=== PATIENT | female | born 1990 | race African-American/Black ===

== ENCOUNTER → 2017-03-24 | Day surgery (SDC) | payer BC, OTHER ==
[2017-03-14 09:31] VITALS: BMI 41.0
--- NOTE | 2017-03-14 10:05 | PAT Medication Instructions ---
Service Date Mar 14, 2017. Current Home Medication List Turmeric (Curcuma Longa) (Turmeric), 1 TAB PO QAM Medication Instructions For Your Scheduled Surgery - Hold the following medications starting 03/15/17: Turmeric (Curcuma Longa) (Turmeric), 1 TAB PO QAM If you have any questions please call us at [phone] or [phone] or [phone]
[2017-03-14 10:59] LABS: BASO % 0.6 %; BASO ABS # 0.04 K/uL (0-0.2); COMPLETE YES; EOS % 1.6 %; HEMATOCRIT 38.8 % (37-47); IG% 0.2 %; LYMPH % 36.3 %; LYMPH ABS # 2.29 K/uL (1.2-3.4); MEAN CELL VOLUME 88.4 fL (80-100); MEAN CORPUSCULAR HEMOGLOBIN 28.7 pg (25-34); MEAN CORPUSCULAR HGB CONC 32.5 g/dl (32-36); MONO % 4.8 %; NEUT % 56.5 %; PLATELET COUNT 366 K/uL (130-400); RED BLOOD COUNT 4.39 M/uL (4.2-5.4)
[2017-03-14 12:11] LABS: CALCIUM 8.9 mg/dl (8.5-10.1); CREATININE 0.72 mg/dl (0.60-1.20); POTASSIUM 3.8 mmol/L (3.5-5.1)
[~2017-03-24] VITALS: Ht 177.8 cm; Wt 131.0 kg
[~2017-03-24] MED LIST: ATROPINE SULFATE 0.1 MG/ML 5ML SYR IV PRN; BUPIVACAINE 0.5 % 5 MG/1 ML MPF 30ML VIAL ONE; CHECK SCOPOLAMINE PATCH PLACEMENT SCH; DEXAMETHASONE SOD INJ 4 MG/ML VIAL ONE; ESMOLOL HCL 10 MG/ML 10 ML VIAL ONE; EpHEDrine SULFATE INJ 50 MG/ML AMP IV PRN; FENTANYL CITRATE INJ 50 MCG/1 ML 2 ML VIAL ONE; GLYCOPYRROLATE INJ 0.2 MG/ML VIAL ONE; LACTATED RINGER'S 500 ML IV SCH; LIDOCAINE HCL 2% 2 ML VIAL (20MG/ML) ONE; MIDAZOLAM HCL 1 MG/ML 2ML VIAL ONE; MoRPHine SULFATE 2 MG/ML CARP IV PRN; MoRPHine SULFATE 4 MG/ML 1 ML CARP\\VIAL IV PRN; NEOSTIGMINE METHYLSULFATE 5 MG/5 ML SYR ONE; ONDANSETRON INJ 2 MG/ML 2 ML VIAL IV PRN; ONDANSETRON INJ 2 MG/ML 2 ML VIAL ONE; OXYC-57 PO; OXYCODONE/ACETAMINOPHEN 5-325 TAB PO PRN; PROPOFOL IV EMULSION 10 MG/ML 20 ML VIAL IV ONE; ROCURONIUM BROMIDE 10 MG/ML 5 ML VIAL IV ONE; SCOPOLAMINE 1.5 MG TDSY TD SCH; TURM500T PO
[2017-03-24 09:28] VITALS: BP 135/81; PULSE 82; TEMP 36.8; O2SAT 99; Ht 177.8 cm; Wt 131.0 kg
--- NOTE | 2017-03-24 11:11 | History & Physical Bridge Note ---
H&P Re-Evaluation Bridge Note: I have examined the patient, reviewed the History & Physical and in the interval since the performance of the History & Physical I have noted the following changes of clinical significance: No changes noted
--- NOTE | 2017-03-24 12:43 | Discharge Instructions ---
Discharge Instructions Date of Service Mar 24, 2017. Admission Reason for Admission: Endometrioma, Abdominal Wall Mass Discharge Discharge Diagnosis / Problem: same Discharge Goals Goal(s): Decrease discomfort, Improve function Activity Recommendations Activity Limitations: as noted below No heavy lifting over 10 pounds for 4-6 weeks No strenuous activity until cleared by surgeon Walking and light activity is encouraged No submerging incision underwater for 2 weeks (No bathing, swimming, or hot tubs ) No driving while you are taking narcotic pain medication or until you are pain free . Instructions / Follow-Up Instructions / Follow-Up You may shower in 24 hours. Remove outer dressing however keep steri strips on incision for 7 days. If they fall off before that is okay. The incision may have some drainage for the first couple of days so you want to keep it covered with gauze and tape. Follow-up with Dr. Boggs in 2 weeks or as already scheduled. If you do not have an appointment please call office at [phone] to make an appointment. Current Hospital Diet Patient's current hospital diet: Discharge Diet Recommended Diet: Regular Diet Procedures Procedures Performed: Removal of Abdominal Wall Endometrioma Pending Studies Studies pending at discharge: yes List of pending studies: Surgical excision specimen pathology- will be reviewed at follow-up visit Medical Emergencies . Who to Call and When: Medical Emergencies: If at any time you feel your situation is an emergency, please call 911 immediately. . Non-Emergent Contact Non-Emergency issues call your: Primary Care Provider, Surgeon Call Non-Emergent contact if: you have a fever, temperature is above 101.5, your pain is not controlled, your pain is worsening, wound has increased drainage, wound has increased redness, wound has increased pain . "Provider Documentation" section prepared by Adele Velazquez. . VTE Core Measure Inpt VTE Proph given/why not?: SCD's [place] Drug Monitoring Program Search Results: patient reviewed within database, no issues identified
[2017-03-24] MEDS: FENTANYL CITRATE INJ 50 MCG/1 ML 2 ML VIAL IV PRN ×3 (13:03→13:19)
[2017-03-24 13:44] VITALS: BP 128/74; PULSE 69; TEMP 36.3; O2SAT 99
[2017-03-24 14:16] VITALS: BP 145/82; PULSE 77; O2SAT 99
[2017-03-24 14:45] VITALS: BP 150/87; PULSE 76; TEMP 36.6; O2SAT 99
--- NOTE | 2017-03-24 14:50 | Anesthesiology Progress Note ---
Anesthesia Post Op Note Date & Time Mar 24, 2017 at 14:50 Vital Signs Pain Intensity: 5.0 Vital Signs Past 12 Hours Date Time Temp Pulse Resp B/P (MAP) Pulse Ox O2 Delivery O2 Flow Rate FiO2 03/24/17 14:16 77 18 145/82 99 Room Air 03/24/17 13:44 36.3 69 16 128/74 99 Room Air 03/24/17 13:36 152/78 03/24/17 13:33 36.9 03/24/17 13:32 74 13 98 03/24/17 13:32 74 13 03/24/17 13:31 166/78 03/24/17 13:27 76 16 98 03/24/17 13:27 76 16 03/24/17 13:26 151/82 03/24/17 13:22 75 16 03/24/17 13:22 75 16 96 03/24/17 13:21 152/80 03/24/17 13:19 78 16 99 03/24/17 13:19 78 16 03/24/17 13:16 151/86 03/24/17 13:14 74 16 95 03/24/17 13:14 74 16 03/24/17 13:11 156/78 03/24/17 13:09 74 15 03/24/17 13:09 71 15 96 03/24/17 13:08 74 16 03/24/17 13:08 74 16 95 03/24/17 13:06 157/91 03/24/17 13:03 74 15 99 03/24/17 13:03 71 15 03/24/17 13:01 162/91 03/24/17 12:58 72 16 100 03/24/17 12:58 73 16 03/24/17 12:56 161/90 03/24/17 12:53 73 17 03/24/17 12:53 73 17 100 03/24/17 12:51 161/91 03/24/17 12:48 71 19 03/24/17 12:48 71 19 100 03/24/17 12:46 159/91 03/24/17 12:43 74 20 100 03/24/17 12:43 73 20 03/24/17 12:41 154/86 03/24/17 12:39 150/82 03/24/17 12:38 76 16 100 03/24/17 12:38 73 16 03/24/17 12:38 36.3 81 18 150/82 100 Mask 10 03/24/17 09:28 36.8 82 18 135/81 (99) 99 Room Air Notes Mental Status: alert / awake / arousable, participated in evaluation Pt Amnestic to Procedure: Yes Nausea / Vomiting: adequately controlled Pain: adequately controlled Airway Patency, RR, SpO2: stable & adequate BP & HR: stable & adequate Hydration State: stable & adequate Anesthetic Complications: no major complications apparent
--- NOTE | 2017-03-25 09:04 | OPERATIVE REPORT ---
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 POSTOPERATIVE DIAGNOSIS: Same. PROCEDURE: Removal of endometrioma, low right abdominal wall. SURGEON: Dr. Boggs. FINDINGS: The patient had a 7 x 7 cm area of the subcutaneous tissue that was hard and extended down to the fascia, was attached to the fascia. It was removed with a rim of normal tissue around it including some of the fascia. The entire palpable hard area was removed. There were no other lesions noted. TECHNIQUE: The area was marked in the preop surgical area. She was taken to the operating room, given a general anesthetic and the area was prepped and draped in the usual sterile fashion. The elliptical incision of skin was taken around the ____ the lateral aspect of the transverse Pfannenstiel incision. This was carried down through the skin and then skin flaps were created superiorly and inferiorly. Beginning then to work superiorly, though I was at the top of the lesion and then working posteriorly and then working medially in a similar plane, taking some normal tissue until it was circumscribed completely. I then performed the deep dissection, requiring removal of part of the fascia in order to remove the entire lesion with the rim of normal tissue. The area was inspected for bleeding, none was seen. The fascia was closed with a running #1 PDS. The deep fatty tissues were approximated with interrupted 2-0 Vicryl. The more superficial subcutaneous tissue was closed with running 3-0 Vicryl and skin was closed with 4-0 Monocryl in a running subcuticular fashion. The skin was cleansed, dried, benzoin placed, Steri-Strips applied after being anesthetized with 0.5% Marcaine. The estimated blood loss was 5 mL. Sponge, needle and instrument counts were correct prior to closure. The patient tolerated the surgical procedure without complication and was transferred to recovery. I attest to the content of the Intraoperative Record and any orders documented therein. Any exception s are noted below.
== END | disposition home or self-care (01) ==
LOC: C.ACU 08:58
PROVIDERS: ATTEND Surgery
DX: N80.8 Other endometriosis (principal); F17.200 Nicotine dependence, unspecified, uncomplicated

== ENCOUNTER 2018-03-23 21:21 | Emergency (ER) | payer OTHER ==
[~2018-03-23] VITALS: Ht 180.3 cm; Wt 137.0 kg
[~2018-03-23 21:21] MED LIST changes: -ATROPINE SULFATE 0.1 MG/ML 5ML SYR IV PRN; -BUPIVACAINE 0.5 % 5 MG/1 ML MPF 30ML VIAL ONE; -CHECK SCOPOLAMINE PATCH PLACEMENT SCH; -DEXAMETHASONE SOD INJ 4 MG/ML VIAL ONE; -ESMOLOL HCL 10 MG/ML 10 ML VIAL ONE; -EpHEDrine SULFATE INJ 50 MG/ML AMP IV PRN; -FENTANYL CITRATE INJ 50 MCG/1 ML 2 ML VIAL ONE; -GLYCOPYRROLATE INJ 0.2 MG/ML VIAL ONE; -LACTATED RINGER'S 500 ML IV SCH; -LIDOCAINE HCL 2% 2 ML VIAL (20MG/ML) ONE; -MIDAZOLAM HCL 1 MG/ML 2ML VIAL ONE; -MoRPHine SULFATE 2 MG/ML CARP IV PRN; -MoRPHine SULFATE 4 MG/ML 1 ML CARP\\VIAL IV PRN; -NEOSTIGMINE METHYLSULFATE 5 MG/5 ML SYR ONE; -ONDANSETRON INJ 2 MG/ML 2 ML VIAL IV PRN; -ONDANSETRON INJ 2 MG/ML 2 ML VIAL ONE; -OXYC-57 PO; -OXYCODONE/ACETAMINOPHEN 5-325 TAB PO PRN; -PROPOFOL IV EMULSION 10 MG/ML 20 ML VIAL IV ONE; -ROCURONIUM BROMIDE 10 MG/ML 5 ML VIAL IV ONE; -SCOPOLAMINE 1.5 MG TDSY TD SCH
[2018-03-23 21:38] VITALS: TEMP 37; Ht 180.3 cm; Wt 137.0 kg
[2018-03-23] MEDS ORDERED: CEPHALEXIN 500MG HOME PACK 1 EA BTL PO STA (23:50)
[2018-03-23] MEDS ORDERED: CEPH500C2 PO (23:51)
--- NOTE | 2018-03-23 23:52 | EMERGENCY ROOM VISIT NOTE ---
History First contact with patient: 21:52 Chief Complaint: SWELLING TO EXTREMITY Stated Complaint: LUMP ON LOWER LEFT LEG, HOT TO TOUCH History of Present Illness The patient is a 28 year old female who presents to the Emergency Room via private vehicle with complaints of "lump on lower left leg, hot to touch". The patient states that about 3 weeks ago she fell while descending a hiking trail. She notes that she injured multiple regions of which the pain has now resolved. She notes now she is concerned about a warm and hardened area on the left lateral calf. She rates her overall discomfort as a 0. No fevers or chills. No history of DVT. Review of Systems A complete 6-point Review of Systems was discussed with the patient, with pertinent positives and negatives listed in the History of Present Illness. All remaining Review of Systems questions can be considered negative unless otherwise specified. Past Medical/Surgical History Medical Problems: (1) Benign hypertension (2) section Social History Smoking Status: Never Smoker Alcohol Use: occasionally Marital Status: single Housing Status: lives with family Occupation Status: employed Current/Historical Medications Scheduled Cephalexin Monohydrate (Keflex), 500 MG PO QID Physical Exam Vital Signs Date Time Temp Pulse Resp B/P (MAP) Pulse Ox O2 Delivery O2 Flow Rate FiO2 03/23/18 23:57 74 18 126/74 98 03/23/18 21:38 37.0 99 18 149/95 95 Room Air Physical Exam VITAL SIGNS - Vital signs and nursing notes were reviewed. Stable. Afebrile. GENERAL -28-year-old female appearing her stated age who is in no acute distress. Communicates well with provider and answers questions appropriately. SKIN -overlying the patient's left lateral calf there is a slightly indurated/ firm area that measures approximately 4 cm x 10 cm. No fluctuance. Minimal erythema that measures about 3 cm x 3 cm overlying this region. Skin is intact. HEAD - NC/AT. EXTREMITIES - No clubbing or peripheral cyanosis. No pretibial edema present. No bony tenderness of the patient's left lower extremity. Excellent mobility about the knee and ankle region. Minimal edema noted in the ankle. Minimal lateral calf tenderness. No bony tenderness. +5/5 strength noted in UE/LE bilaterally. NEUROLOGIC - Cranial nerves II through XII grossly intact. PSYCH - A&O, and cooperates fully with examiner. Pt is very pleasant and interacts well with examiner. Medical Decision & Procedures ER Provider Diagnostic Interpretation: Ultrasound extremity: No DVT, radiologist Helder Sky MD. Ultrasound venous left lower extremity: No evidence of deep venous thrombosis. Radiologist: Helder Sky MD. LEFT LOWER EXTREMITY ULTRASOUND CLINICAL HISTORY: L leg pain s/p trauma 3 weeks ago- Lateral calf COMPARISON STUDY: None. FINDINGS: Real-time sonographic imaging of the left calf was performed with cash application representative images mid up. Increased echogenicity within the subcutaneous fat suggestive of a contusion. No fluid collections to suggest a hematoma. IMPRESSION: Subcutaneous contusion within the left calf. No fluid collections to suggest a hematoma. Electronically signed by: Pola Kaur M.D. 03/24/2018 7:07 AM Dictated Date/Time: 03/24/2018 7:06 AM LEFT LOWER EXTREMITY VENOUS DOPPLER HISTORY: L leg pain s/p trauma 3 weeks ago COMPARISON STUDY: None. FINDINGS: There is normal compressibility, flow, and augmentation within the left lower extremity deep venous system. IMPRESSION: No DVT within the left lower extremity. Electronically signed by: Pola Kaur M.D. 03/24/2018 7:06 AM Dictated Date/Time: 03/24/2018 7:06 AM Medications Administered Medications (Trade) Dose Ordered Sig/Kasandra Route Start Time Stop Time Status Last Admin Dose Admin Cephalexin Monohydrate (Keflex 500MG Home Pack) 1 homepack NOW STAT PO 03/23/18 23:50 03/23/18 23:51 DC 03/23/18 23:50 1 HOMEPACK Medical Decision Patient was seen and evaluated as above in room D3. Review was performed of nursing notes and vital signs. After obtaining a thorough history and physical examination the above work up was performed. She presents to us today with minimal amount of swelling to the left calf with a firm area. This is likely consistent with that of a hematoma. Ultrasound was obtained and reveals no DVT or fluid collection at the site. At this time I believe she is stable for outpatient management. Benefit versus risk of initiating antibiotics for potential small developing cellulitis was discussed. After thorough discussion and through utilization of shared decision making decision was made to initiate Keflex. The patient was educated upon management, educated upon todays findings /results, educated upon symptoms in which to return, had questions answered prior to discharge, and was discharged home in good condition. She is to utilize an Laci bandage, elevation, ice. In the evaluation and treatment of this patient the following differential diagnoses were entertained: Cellulitis, hematoma, infected hematoma, DVT, among others. Impression Primary Impression: Swelling of left extremity Additional Impressions: Cellulitis Contusion Departure Information Dispostion Home / Self-Care Condition GOOD Prescriptions Cephalexin Monohydrate (KEFLEX) 500 Mg Cap 500 MG PO QID for 9 Days, #36 CAP Prov: Modesto Posey PA-C 03/23/18 Referrals Bertrand Rios M.D.([facility]) (PCP) Patient Instructions My [facility] Additional Instructions You were seen in the emergency department for swelling and irritation to the left calf region. At this time the ultrasound shows no abscess, collection of pus, large amount of blood, or blood clot. Please elevate the region. Keflex 500 mg every 6 hours. If the redness would increase please return. Please apply ice but not directly to the skin. Please wear the Laci wrap during the day and take off at night. Please be careful not to apply this too tightly. Please follow-up with the family doctor. Please return with any new/concerning symptoms. Problem Qualifiers
[2018-03-23 23:57] VITALS: BP 126/74; PULSE 74; O2SAT 98
--- NOTE | 2018-03-24 07:07 | DIAGNOSTIC IMAGING REPORT ---
LEFT LOWER EXTREMITY VENOUS DOPPLER HISTORY: L leg pain s/p trauma 3 weeks ago COMPARISON STUDY: None. FINDINGS: There is normal compressibility, flow, and augmentation within the left lower extremity deep venous system. IMPRESSION: No DVT within the left lower extremity. Electronically signed by: Pola Kaur M.D. 03/24/2018 7:06 AM Dictated Date/Time: 03/24/2018 7:06 AM
--- NOTE | 2018-03-24 07:08 | DIAGNOSTIC IMAGING REPORT ---
LEFT LOWER EXTREMITY ULTRASOUND CLINICAL HISTORY: L leg pain s/p trauma 3 weeks ago- Lateral calf COMPARISON STUDY: None. FINDINGS: Real-time sonographic imaging of the left calf was performed with paper sales representative images mid up. Increased echogenicity within the subcutaneous fat suggestive of a contusion. No fluid collections to suggest a hematoma. IMPRESSION: Subcutaneous contusion within the left calf. No fluid collections to suggest a hematoma. Electronically signed by: Pola Kaur M.D. 03/24/2018 7:07 AM Dictated Date/Time: 03/24/2018 7:06 AM
== END 2018-03-23 23:58 | disposition home or self-care (01) ==
LOC: C.EDB 21:23 → C.EDD 23:58
DX: L03.116 Cellulitis of left lower limb (principal); S80.12XA Contusion of left lower leg, initial encounter; W19.XXXA Unspecified fall, initial encounter; Y93.01 Activity, walking, marching and hiking; Y99.8 Other external cause status; I10 Essential (primary) hypertension